=== PATIENT | male | born 1955 | race African-American/Black ===

== ENCOUNTER 2016-12-23 19:46 | Emergency (ER) | payer OTHER ==
[2016-12-23] MEDS ORDERED: Ketorolac Tromethamine 30 MG/ML VIAL ONE (20:42)
[2016-12-23 21:07] LABS: #Lymphocytes 0.8 thou/uL (1.20-3.40); #Monocytes 0.3 thou/uL (0.11-0.59); #Neutrophils 3.7 thou/uL (1.40-6.50); %Basophils 0.5 % (0.0-1.0); %Eosinophils 0.4 % (0.0-10.0); %Lymphocytes 16.4 % (21.0-51.0); %Monocytes 6.9 % (0.0-10.0); %Neutrophils 75.7 % (42.0-75.0); Hemoglobin 9.1 g/dL (14.0-18.0); Mean Corpuscular HGB CONC 31.8 g/dL (32.0-36.0); Mean Corpuscular Hemoglobin 32.9 pg (27.0-31.0); Mean Platelet Volume 5.7 fL (7.4-10.4); Platelet Count 222 thou/uL (130-400); RBC Distribution Width 13.1 % (11.5-14.5); Red Blood Cell (RBC) Count 2.75 mill/uL (4.70-6.10); White Blood Cell (WBC) Count 4.9 thou/uL (4.8-10.8)
[2016-12-23] MEDS ORDERED: Ondansetron HCl/PF 4 MG/2 ML Vial ONE (21:13)
[2016-12-23 21:15] LABS: ALT (SGPT) 19 U/L (8-55); AST (SGOT) 24 U/L (5-34); Albumin 2.4 g/dL (3.5-5.0); Alkaline Phosphatase 142 U/L (40-150); Anion Gap 13 mmol/L (10-20); BUN (Urea Nitrogen) 12 mg/dL (8.4-25.7); Bilirubin, Total 0.4 mg/dL (0.2-1.2); Calc. Creatinine Clearance 0 mL/min (70-130); Calcium 8.2 mg/dL (7.8-10.44); Carbon Dioxide 23 mmol/L (22-29); Chloride 100 mmol/L (98-107); Estimated GFR-MDRD Greater than 90; Globulin 4.1 g/dL (2.4-3.5); Glucose 233 mg/dL (70-105); Potassium 4.2 mmol/L (3.5-5.1); Protein, Total 6.5 g/dL (6.0-8.3); Sodium 132 mmol/L (136-145)
[2016-12-23 21:29] LABS: Bilirubin Negative (Negative); Blood, Urine Negative (Negative); Clarity Clear (Clear); Glucose, Urine (Dipstick) 250 mg/dL (Negative); Leukocyte Negative (Negative); Nitrite Negative (Negative); Protein, Urine (Dipstick) Negative (Neg-Trace); Specific Gravity, Urine 1.015 (1.005-1.030); Urobilinogen 0.2 mg/dL (0.2-1.0); pH, Urine 5.5 (5.0-9.0)
[2016-12-23] MEDS ORDERED: Clindamycin 300 MG/2 ML VIAL ONE ×2 (22:08→22:13)
[2016-12-23] MEDS ORDERED: Sodium Chloride 0.9% 100 ML ONE (22:09)
--- NOTE | 2016-12-23 23:02 | RAD ---
PORTABLE SEMIUPRIGHT FRONTAL CHEST RADIOGRAPH 12/23/16 COMPARISON: 06/02/16 HISTORY: Bedsores, infection. FINDINGS: There is a subtle area of cavitary change suspected within the mid right lung zone, measuring approx imately 3 cm in transverse dimension. There was a focal area of pulmonary parenchymal opacity in thi s region on the 06/02/16 exam and thus, this may represent residual cavitary change associated with p rior infection. Blunting of right costophrenic angle suggests small volume right pleural effusion an d/or pleural scar, stable. There is a transvenous pacing device, stable. No pneumothorax or lobar co nsolidation. IMPRESSION: 3 cm area of probable cavitary change within the mid right lung zone, nonspecific as above. Blunting of right costophrenic angle suggests small volume right pleural effusion and/or pleural scar. If sy mptoms persists, PA and lateral chest imaging advised. POS: [facility]
[2016-12-24] MEDS ORDERED: Sodium Chloride 0.9% 2,000 ML ONE (00:01)
== END 2016-12-23 23:25 | disposition short-term general hospital (02) ==
LOC: NAV ERS 19:46
DX: A41.9 Sepsis, unspecified organism (principal); L03.317 Cellulitis of buttock; L89.322 Pressure ulcer of left buttock, stage 2; L89.312 Pressure ulcer of right buttock, stage 2; I25.10 Atherosclerotic heart disease of native coronary artery without angina pectoris; E11.9 Type 2 diabetes mellitus without complications; E78.5 Hyperlipidemia, unspecified; I10 Essential (primary) hypertension; M19.90 Unspecified osteoarthritis, unspecified site; F17.210 Nicotine dependence, cigarettes, uncomplicated
CPT/HCPCS: 36416; 71010; 80053; 81003; 83605; 85025; 87040; 87070; 87077; 87186; 87205; 96360; 96365; 96374; 96375; J1885; J2270; J2405; J3490; J7050

== ENCOUNTER 2017-02-25 15:45 | Outpatient (CLI) | payer OTHER ==
[2017-02-25 16:13] LABS: Anion Gap 15 mmol/L (10-20); BUN (Urea Nitrogen) 21 mg/dL (8.4-25.7); Calc. Creatinine Clearance 0 mL/min (70-130); Calcium 8.9 mg/dL (7.8-10.44); Carbon Dioxide 24 mmol/L (22-29); Chloride 100 mmol/L (98-107); Estimated GFR-MDRD Greater than 90; Glucose 481 mg/dL (70-105); Potassium 4.1 mmol/L (3.5-5.1); Sodium 135 mmol/L (136-145)
== END 2017-02-25 15:46 | disposition home or self-care (01) ==
LOC: NAV LABSP 15:45
PROVIDERS: ATTEND Internal Medicine
DX: E11.8 Type 2 diabetes mellitus with unspecified complications (principal)
CPT/HCPCS: 80048